=== PATIENT | female | born 1975 | race Hispanic/Latino ===

== ENCOUNTER 2018-08-02 12:05 | Observation (INO) | payer MEDICAID, OTHER ==
[2018-08-02 12:42] LABS: Bilirubin,Urine NEG (Negative); Blood,Urine MOD (Negative); Color,Urine Yellow (Yellow); Mucus,Urine FEW /HPF; Protein,Urine <15 mg/dL mg/dL (Negative); Urobilinogen,Urine < 2.0 mg/dL (<2.0); WBC,Urine < 1.0 /HPF (0.0-6.0)
[2018-08-02 12:43] LABS: HCG Qualitative,Urine Negative (Negative)
[2018-08-02] MEDS ORDERED: NACL 0.9% 500 ML 500 ML IV ONE (13:18)
[2018-08-02] MEDS ORDERED: CARAFATE PO ONE (13:18)
[2018-08-02] MEDS ORDERED: PEPCID IV ONE (13:18)
--- NOTE | 2018-08-02 13:19 | Emergency Department Report ---
ED General Adult HPI - General Chief complaint: Dizziness Stated complaint: DIZZINESS/ABD PAIN/LIGHT HEADED Time Seen by Provider: 08/02/18 13:00 Source: patient, RN notes reviewed Mode of arrival: Ambulatory - History of Present Illness Initial comments: This is a 43-year-old female who was not known to this provider previously. The patient currently does not have a primary care doctor, she also denies chronic disease. She reports that she does not take any long-term prescription medications. Patient presents to the ER. She reports that last Thursday, she began to exper ience diffuse crampy lower abdominal pain, nausea, dizziness, and "felt bad." She describes a sensation of dizziness as a "hot" feeling coming over her head, binocular loss of vision, and the sensation of almost passing out. This is also accompanied by a sensation of unsteady gait. She reports that the next day, she had a subjective fever, found her blood pressure to be "205/100", and presented to another hospital, where she was found to have hypokalemia, high white blood cell count, and was presumptively diagnosed with a "virus." She further reports that she had a noncontrast CT scan of the brain which was "negative", but a CT scan of the abdomen and pelvis was recommended, which she declined. Patient reports that for the past week or so, she's been having intermittent dizziness, nonspecific visual disturbance, sensation of abdominal pain, nausea, weakness, and subjective unsteady gait. The symptoms are intermittent, worse with walking, decreased with rest, and do not radiate anywhere. She denies irritative/obstructive urinary symptoms. She denies DVT, pulmonary embolus risk factors. -: Gradual, days(s) Location: abdomen Radiation: non-radiation Consistency: intermittent Improves with: other Worsens with: other Associated Symptoms: other - Related Data Home Medications Medication Instructions Recorded Confirmed Last Taken Meclizine [Antivert] 25 mg PO TID PRN 08/02/18 08/02/18 Unknown Multivitamin [One Daily 1 each PO DAILY 08/02/18 08/02/18 08/02/18 Multivitamin] Potassium 99 mg PO DAILY 08/02/18 08/02/18 08/02/18 Justin's Wort 300 mg PO DAILY 08/02/18 08/02/18 08/02/18 predniSONE [Deltasone] 10 mg PO BID 08/02/18 08/02/18 08/01/18 Allergies Allergy/AdvReac Type Severity Reaction Status Date / Time aspirin Allergy Vomiting Verified 05/02/13 05:34 codeine Allergy Unknown Verified 05/02/13 05:34 tramadol HCl [From Ultram] Allergy Rash Verified 05/02/13 05:34 iv dye Allergy Anaphylaxis Uncoded 08/02/18 14:31 ED Review of Systems ROS: Stated complaint: DIZZINESS/ABD PAIN/LIGHT HEADED Other details as noted in HPI Constitutional: fever, malaise Eyes: vision change. denies: eye pain, eye discharge ENT: denies: throat pain, epistaxis Respiratory: denies: cough Cardiovascular: dyspnea on exertion, syncope (near syncope, lightheadedness, dizziness) Gastrointestinal: abdominal pain, nausea Genitourinary: denies: dysuria Musculoskeletal: arthralgia, myalgia Skin: denies: lesions Neurological: weakness, abnormal gait Psychiatric: anxiety ED Past Medical Hx - Past Medical History Hx Diabetes: Yes (gestational) Additional medical history: hypoglycemia - Surgical History Additional Surgical History: t&a - Social History Smoking Status: Never Smoker Substance Use Type: None - Medications Home Medications: Home Medications Medication Instructions Recorded Confirmed Last Taken Type Meclizine [Antivert] 25 mg PO TID PRN 08/02/18 08/02/18 Unknown History Multivitamin [One Daily 1 each PO DAILY 08/02/18 08/02/18 08/02/18 History Multivitamin] Potassium 99 mg PO DAILY 08/02/18 08/02/18 08/02/[address] [facility]S's Wort 300 mg PO DAILY 08/02/18 08/02/18 08/02/18 History predniSONE [Deltasone] 10 mg PO BID 08/02/18 08/02/18 08/01/18 History ED Physical Exam - General Limitations: Physical Limitation General appearance: alert, anxious - Head Head exam: Present: atraumatic, normocephalic - Eye Eye exam: Present: normal appearance, PERRL, EOMI, other (visual acuity intact to finger counting, color perception, reading at a close distance). Absent: nystagmus - ENT ENT exam: Present: normal exam, normal orophraynx, mucous membranes moist, normal external ear exam - Neck Neck exam: Present: normal inspection, full ROM. Absent: tenderness, meningi smus - Respiratory Respiratory exam: Present: normal lung sounds bilaterally. Absent: respiratory distress - Cardiovascular Cardiovascular Exam: Present: regular rate, normal rhythm, normal heart sounds. Absent: bradycardia, tachycardia, irregular rhythm, systolic murmur, diastolic murmur, rubs, gallop - GI/Abdominal GI/Abdominal exam: Present: soft, tenderness. Absent: distended, guarding, rebound, rigid, pulsatile mass - Extremities Exam Extremities exam: Present: normal inspection, full ROM, other (Extraocular movements intact. Tongue midline. No facial droop. Facial sensation intact to light touch in the V1, V2, V3 distribution bilaterally. 5 and 5 strength in 4 extremities.. Sensation is intact to light touch in 4 extremities.2+ pulses noted in the bilateral upper, lower extremities. Compartments soft. No long bony tenderness. The pelvis is stable.). Absent: pedal edema, joint swelling, calf tenderness - Back Exam Back exam: Present: normal inspection, full ROM. Absent: tenderness, CVA tenderness (R), paraspinal tenderness, vertebral tenderness - Neurological Exam Neurological exam: Present: alert, oriented X3, abnormal gait (there is no pass pointing. There is normal irdu-ox-cfvt. There is negative pronator drift. There is a normal gait. There is a normal tandem gait. Patient has a positive/abnormal Romberg sign.), other (Extraocular movements intact. Tongue midline. No facial droop. Facial sensation intact to light touch in the V1, V2, V3 distribution bilaterally. 5 and 5 strength in 4 extremities.. Sensation is intact to light touch in 4 extremities.). Absent: motor sensory deficit - Psychiatric Psychiatric exam: Present: anxious - Skin Skin exam: Present: warm, dry, intact, normal color. Absent: rash ED Course Vital Signs 08/02/18 12:09 Temperature 97.3 F L Pulse Rate 78 Respiratory 18 Rate Blood Pressure 159/82 O2 Sat by Pulse 99 Oximetry - Reevaluation(s) Reevaluation #1: 08/02/18 14:18 Differential diagnosis, including but not limited to: Intra-abdominal infection, pneumonia, urinary tract infection, orthostasis, vagal event, structural cardiac disease, thyroid derangement, subacute stroke, multiple sclerosis Assessment and plan: 43-year-old female with abdominal tenderness, leukocytosis, generalized weakness, malaise, fatigue, nonfocal neurologic examination, walks with a steady gait, however has abnormal and positive Romberg examination. Noncontrast CT scan of brain is pending. CT scan of the abdomen and pelvis is pending. Not a TPA candidate given that symptoms present for one week. Has NIH score of 0. Does not require emergent endovascular imaging his symptoms present for a week. We'll treat supportively. We will reassess after her initial blood appointment have resulted. No pulmonary and was or DVT risk factors. Low risk by well's criteria. perc negative Reevaluation #2: 08/02/18 15:08 Patient reported anaphylaxis to IV contrast. non Contrast study has been ordered. Reevaluation #3: 08/02/18 15:37 CT scan of the brain is negative. X-ray of the chest is negative. CT scan of the abdomen pelvis is negative. Plavix ordered given a history of aspirin allergy. Hospital service paged to arrange admission. Reevaluation #4: 08/02/18 15:53 Dr Medley to admit ED Medical Decision Making - Lab Data Result diagrams: 08/02/18 13:20 08/02/18 13:20 Vital Signs 08/02/18 12:09 Temperature 97.3 F L Pulse Rate 78 Respiratory 18 Rate Blood Pressure 159/82 O2 Sat by Pulse 99 Oximetry Lab Results 08/02/18 08/02/18 08/02/18 Range/Units 13:20 13:20 13:38 WBC 18.2 H (4.5-11.0) K/mm3 RBC 4.47 (3.65-5.03) M/mm3 Hgb 13.0 (10.1-14.3) gm/dl Hct 38.9 (30.3-42.9) % MCV 87 (79-97) fl MCH 29 (28-32) pg MCHC 33 (30-34) % RDW 14.0 (13.2-15.2) % Plt Count 340 (140-440) K/mm3 PT 13.0 (12.2-14.9) Sec. INR 0.94 (0.87-1.13) APTT 29.1 (24.2-36.6) Sec. Sodium 140 (137-145) mmol/L Potassium 4.2 (3.6-5.0) mmol/L Chloride 102.4 (98-107) mmol/L Carbon Dioxide 25 (22-30) mmol/L Anion Gap 17 mmol/L BUN 10 (7-17) mg/dL Creatinine 0.6 L (0.7-1.2) mg/dL Estimated GFR > 60 ml/min BUN/Creatinine Ratio 17 % Glucose 84 (65-100) mg/dL Calcium 9.3 (8.4-10.2) mg/dL Magnesium 1.90 (1.7-2.3) mg/dL Troponin T < 0.010 (0.00-0.029) ng/mL Urine Color (Yellow) Urine Turbidity (Clear) Urine pH (5.0-7.0) Ur Specific Star[place] (1.003-1.030) Urine Protein (Negative) mg/dL Urine Glucose (UA) (Negative) mg/dL Urine Ketones (Negative) mg/dL Urine Blood (Negative) Urine Nitrite (Negative) Urine Bilirubin (Negative) Urine Urobilinogen (<2.0) mg/dL Ur Leukocyte Esterase (Negative) Urine WBC (Auto) (0.0-6.0) /HPF Urine RBC (Auto) (0.0-6.0) /HPF Urine Mucus /HPF Urine HCG, Qual (Negative) 08/02/18 Range/Units Unknown WBC (4.5-11.0) K/mm3 RBC (3.65-5.03) M/mm3 Hgb (10.1-14.3) gm/dl Hct (30.3-42.9) % MCV (79-97) fl MCH (28-32) pg MCHC (30-34) % RDW (13.2-15.2) % Plt Count (140-440) K/mm3 PT (12.2-14.9) Sec. INR (0.87-1.13) APTT (24.2-36.6) Sec. Sodium (137-145) mmol/L Potassium (3.6-5.0) mmol/L Chloride (98-107) mmol/L Carbon Dioxide (22-30) mmol/L Anion Gap mmol/L BUN (7-17) mg/dL Creatinine (0.7-1.2) mg/dL Estimated GFR ml/min BUN/Creatinine Ratio % Glucose (65-100) mg/dL Calcium (8.4-10.2) mg/dL Magnesium (1.7-2.3) mg/dL Troponin T (0.00-0.029) ng/mL Urine Color Yellow (Yellow) Urine Turbidity Clear (Clear) Urine pH 6.0 (5.0-7.0) Ur Specific Starlight 1.011 (1.003-1.030) Urine Protein <15 mg/dl (Negative) mg/dL Urine Glucose (UA) Neg (Negative) mg/dL Urine Ketones Neg (Negative) mg/dL Urine Blood Mod (Negative) Urine Nitrite Neg (Negative) Urine Bilirubin Neg (Negative) Urine Urobilinogen < 2.0 (<2.0) mg/dL Ur Leukocyte Esterase Neg (Negative) Urine WBC (Auto) < 1.0 (0.0-6.0) /HPF Urine RBC (Auto) 10.0 (0.0-6.0) /HPF Urine Mucus Few /HPF Urine HCG, Qual Negative (Negative) - EKG Data -: EKG Interpreted by Id EKG shows normal: sinus rhythm Rate: normal - EKG Data When compared to previous EKG there are: previous EKG unavailable 08/02/18 14:20 Sinus, 82 bpm, normal axis, intervals, poor R-wave progression, abnormal EKG, not consistent with ST elevation myocardial infarction. There is no prior for comparison. - Radiology Data Radiology results: pending, report reviewed, image reviewed Critical care attestation.: If time is entered above; I have spent that time in minutes in the direct care of this critically ill patient, excluding procedure time. ED Disposition Clinical Impression: Visual disturbance, History of unsteady gait, Near syncope Disposition: OP ADMIT IP TO THIS HOSP Is pt being admited?: Yes Does the pt Need Aspirin: No Condition: Good Referrals: PRIMARY CARE,MD [Primary Care Provider] - 3-5 Days
[2018-08-02 13:36] LABS: Hematocrit 38.9 % (30.3-42.9); Mean Corpuscular HGB Conc 33 % (30-34); Mean Corpuscular Volume 87 fl (79-97); Platelet Count 340 K/mm3 (140-440); Red Blood Count 4.47 M/mm3 (3.65-5.03)
[2018-08-02 13:55] LABS: INR 0.94 (0.87-1.13)
[2018-08-02 13:56] LABS: Partial Thromboplastin Time 29.1 Sec. (24.2-36.6)
[2018-08-02 13:57] LABS: BUN/Creatinine Ratio 17; Blood Urea Nitrogen 10 mg/dL (7-17); Calcium 9.3 mg/dL (8.4-10.2); Hemolysis Index 2
--- NOTE | 2018-08-02 15:16 | XRay Report ---
ROUTINE CHEST, TWO VIEWS: HISTORY: Fever, malaise, weakness, and near syncope. The trachea, heart, mediastinal contour, lung lees and bony thorax are unremarkable. IMPRESSION: Unremarkable chest x-ray.
--- NOTE | 2018-08-02 15:17 | Cat Scan Report ---
CT HEAD WITHOUT CONTRAST: HISTORY: Unsteady gait. TECHNIQUE: Sequential 2.5mm CT images. COMPARISON: none. FINDINGS: Cerebral Parenchyma: Within normal limits. Cerebellum: Within normal limits. Brainstem: Within normal limits. Ventricles: Normal. Sella: Normal. Extra-axial spaces: Normal. Basal Cisterns: Normal. Intracranial Hemorrhage: None. Midline Shift: None. Calvarium: Normal. Sinuses: Normal. Mastoid Air Cells: Normal. Visualized Orbits: Normal. IMPRESSION: Cranial CT scan within normal limits.
--- NOTE | 2018-08-02 15:19 | Cat Scan Report ---
CT ABDOMEN PELVIS WITHOUT CONTRAST: HISTORY: abdominal pain. COMPARISON: none. TECHNIQUE: Helical CT in 1.25mm intervals without IV contrast. Sagittal and coronal reconstructions. FINDINGS: Lung bases: Normal. Liver: Normal. Biliary system: Normal. Pancreas: Normal. Spleen: Normal. Kidneys/ureters/bladder: Normal. Adrenal glands: Normal. Aorta: Normal. Intestines: Normal. Appendix: Normal. Pelvic viscera: Normal. Ascites: None. Adenopathy: None. Musculoskeletal: Normal. IMPRESSION: Unremarkable CT scan of the abdomen and pelvis without contrast.
[2018-08-02] MEDS ORDERED: PLAVIX PO ONE (15:37)
--- NOTE | 2018-08-02 16:20 | History and Physical Report ---
History of Present Illness Date of examination: 08/02/18 Date of admission: 08/02/18 Chief complaint: Feeling weak, nauseous, generalized weakness and dizzy while standing for 1 week History of present illness: 43-year-old female with no significant past medical history comes in for nausea and dizziness and feeling weak for last 1 week. Feels unsteady while walking secondary to weakness. Patient was evaluated in [facility] and was told that she had a viral syndrome. Her blood pressure was apparently high but normally she runs a normal blood pressure on a regular basis. Low-grade fever present. Off and on. Did not vomit. No diarrhea. No shortness of breath. Feels weak and dizzy while standing and walking. Says she has some blurred vision intermittently. No dysarthria or dysphagia. No dysuria. No recent travel. Past Medical History Hx Diabetes: Yes (gestational) Additional medical history: hypoglycemia - Surgical History Additional Surgical History: t&a - Social History Smoking Status: Never Smoker Substance Use Type: None Family history Htn - Medications Home Medications: Home Medications Medication Instructions Recorded Confirmed Last Taken Type Meclizine [Antivert] 25 mg PO TID PRN 08/02/18 08/02/18 Unknown History Multivitamin [One Daily 1 each PO DAILY 08/02/18 08/02/18 08/02/18 History Multivitamin] Potassium 99 mg PO DAILY 08/02/18 08/02/18 08/02/18 History Justin's Wort 300 mg PO DAILY 08/02/18 08/02/18 08/02/18 History predniSONE [Deltasone] 10 mg PO BID 08/02/18 08/02/18 08/01/18 History Review of systems ROS: Stated complaint: DIZZINESS/ABD PAIN/LIGHT HEADED Other details as noted in HPI Constitutional: fever, malaise Eyes: vision change. denies: eye pain, eye discharge ENT: denies: throat pain, epistaxis Respiratory: denies: cough Cardiovascular: dyspnea on exertion, syncope (near syncope, lightheadedness, dizziness) Gastrointestinal: abdominal pain, nausea Genitourinary: denies: dysuria Musculoskeletal: arthralgia, myalgia Skin: denies: lesions Neurological: weakness, abnormal gait Psychiatric: anxiety I: 1 Medications and Allergies Allergies Allergy/AdvReac Type Severity Reaction Status Date / Time aspirin Allergy Vomiting Verified 05/02/13 05:34 codeine Allergy Unknown Verified 05/02/13 05:34 tramadol HCl [From Ultram] Allergy Rash Verified 05/02/13 05:34 iv dye Allergy Anaphylaxis Uncoded 08/02/18 14:31 Home Medications Medication Instructions Recorded Confirmed Last Taken Type Meclizine [Antivert] 25 mg PO TID PRN 08/02/18 08/02/18 Unknown History Multivitamin [One Daily 1 each PO DAILY 08/02/18 08/02/18 08/02/18 History Multivitamin] Potassium 99 mg PO DAILY 08/02/18 08/02/18 08/02/18 History Justin's Wort 300 mg PO DAILY 08/02/18 08/02/18 08/02/18 History predniSONE [Deltasone] 10 mg PO BID 08/02/18 08/02/18 08/01/18 History Exam - Constitutional Vitals: Temp Pulse Resp BP Pulse Ox 97.3 F L 78 18 159/82 99 08/02/18 12:09 08/02/18 12:09 08/02/18 12:09 08/02/18 12:09 08/02/18 12:09 General appearance: Present: no acute distress, well-nourished - EENT Eyes: Present: PERRL ENT: hearing intact, clear oral mucosa - Neck Neck: Present: supple, normal ROM - Respiratory Respiratory effort: normal Respiratory: bilateral: CTA - Cardiovascular Heart rate: 86 Rhythm: regular Heart Sounds: Present: S1 & S2. Absent: rub, click - Extremities Extremities: no ischemia, pulses intact, pulses symmetrical, No edema Peripheral Pulses: within normal limits - Abdominal General gastrointestinal: Present: soft, non-tender, non-distended, normal bowel sounds Female genitourinary: Present: normal - Rectal Rectal Exam: deferred - Integumentary Integumentary: Present: clear, warm, dry - Musculoskeletal Musculoskeletal: gait normal, strength equal bilaterally - Psychiatric Psychiatric: appropriate mood/affect, intact judgment & insight - Neurologic Neurologic: CNII-XII intact, moves all extremities, other (able to walk normally) - Allied Health Allied health notes reviewed: nursing, case management Results - Labs CBC & Chem 7: 08/02/18 13:20 08/02/18 13:20 Labs: Laboratory Last Values WBC 18.2 K/mm3 (4.5-11.0) H 08/02/18 13:20 RBC 4.47 M/mm3 (3.65-5.03) 08/02/18 13:20 Hgb 13.0 gm/dl (10.1-14.3) 08/02/18 13:20 Hct 38.9 % (30.3-42.9) 08/02/18 13:20 MCV 87 fl (79-97) 08/02/18 13:20 MCH 29 pg (28-32) 08/02/18 13:20 MCHC 33 % (30-34) 08/02/18 13:20 RDW 14.0 % (13.2-15.2) 08/02/18 13:20 Plt Count 340 K/mm3 (140-440) 08/02/18 13:20 PT 13.0 Sec. (12.2-14.9) 08/02/18 13:38 INR 0.94 (0.87-1.13) 08/02/18 13:38 APTT 29.1 Sec. (24.2-36.6) 08/02/18 13:38 Sodium 140 mmol/L (137-145) 08/02/18 13:20 Potassium 4.2 mmol/L (3.6-5.0) 08/02/18 13:20 Chloride 102.4 mmol/L (98-107) 08/02/18 13:20 Carbon Dioxide 25 mmol/L (22-30) 08/02/18 13:20 Anion Gap 17 mmol/L 08/02/18 13:20 BUN 10 mg/dL (7-17) 08/02/18 13:20 Creatinine 0.6 mg/dL (0.7-1.2) L 08/02/18 13:20 Estimated GFR > 60 ml/min 08/02/18 13:20 BUN/Creatinine Ratio 17 % 08/02/18 13:20 Glucose 84 mg/dL (65-100) 08/02/18 13:20 Calcium 9.3 mg/dL (8.4-10.2) 08/02/18 13:20 Magnesium 1.90 mg/dL (1.7-2.3) 08/02/18 13:20 Total Creatine Kinase 29 units/L (30-135) L 08/02/18 13:20 Troponin T < 0.010 ng/mL (0.00-0.029) 08/02/18 13:20 TSH 1.030 mlU/mL (0.270-4.200) 08/02/18 15:15 Urine Color Yellow (Yellow) 08/02/18 Unknown Urine Turbidity Clear (Clear) 08/02/18 Unknown Urine pH 6.0 (5.0-7.0) 08/02/18 Unknown Ur Specific [place] 1.011 (1.003-1.030) 08/02/18 Unknown Urine Protein <15 mg/dl mg/dL (Negative) 08/02/18 Unknown Urine Glucose (UA) Neg mg/dL (Negative) 08/02/18 Unknown Urine Ketones Neg mg/dL (Negative) 08/02/18 Unknown Urine Blood Mod (Negative) 08/02/18 Unknown Urine Nitrite Neg (Negative) 08/02/18 Unknown Urine Bilirubin Neg (Negative) 08/02/18 Unknown Urine Urobilinogen < 2.0 mg/dL (<2.0) 08/02/18 Unknown Ur Leukocyte Esterase Neg (Negative) 08/02/18 Unknown Urine WBC (Auto) < 1.0 /HPF (0.0-6.0) 08/02/18 Unknown Urine RBC (Auto) 10.0 /HPF (0.0-6.0) 08/02/18 Unknown Urine Mucus Few /HPF 08/02/18 Unknown Urine HCG, Qual Negative (Negative) 08/02/18 Unknown Short CBC 08/02/18 Range/Units 13:20 WBC 18.2 H (4.5-11.0) K/mm3 Hgb 13.0 (10.1-14.3) gm/dl Hct 38.9 (30.3-42.9) % Plt Count 340 (140-440) K/mm3 BMP 08/02/18 13:20 Sodium 140 Potassium 4.2 Chloride 102.4 Carbon Dioxide 25 BUN 10 Creatinine 0.6 L Glucose 84 Calcium 9.3 Cardiac Enzymes 08/02/18 Range/Units 13:20 Total Creatine Kinase 29 L (30-135) units/L Troponin T < 0.010 (0.00-0.029) ng/mL Urine 08/02/18 Range/Units Unknown Urine Color Yellow (Yellow) Urine pH 6.0 (5.0-7.0) Ur Specific [place] 1.011 (1.003-1.030) Urine Protein <15 mg/dl (Negative) mg/dL Urine Glucose (UA) Neg (Negative) mg/dL Short CBC 08/02/18 Range/Units 13:20 WBC 18.2 H (4.5-11.0) K/mm3 Hgb 13.0 (10.1-14.3) gm/dl Hct 38.9 (30.3-42.9) % Plt Count 340 (140-440) K/mm3 BMP 08/02/18 13:20 Sodium 140 Potassium 4.2 Chloride 102.4 Carbon Dioxide 25 BUN 10 Creatinine 0.6 L Glucose 84 Calcium 9.3 Cardiac Enzymes 08/02/18 Range/Units 13:20 Total Creatine Kinase 29 L (30-135) units/L Troponin T < 0.010 (0.00-0.029) ng/mL Urine 08/02/18 Range/Units Unknown Urine Color Yellow (Yellow) Urine pH 6.0 (5.0-7.0) Ur Specific [place] 1.011 (1.003-1.030) Urine Protein <15 mg/dl (Negative) mg/dL Urine Glucose (UA) Neg (Negative) mg/dL - Imaging and Cardiology EKG: report reviewed (normal sinus rhythm, heart rate of 82/m, no acute ST-T wave changes, EKG interpreted by me) Assessment and Plan Advance Directives: Yes (full Code) VTE prophylaxis?: Chemical Plan of care discussed with patient/family: Yes - Patient Problems (1) Ataxia Current Visit: Yes Status: Acute Plan to address problem: No cerebellar signs Dizziness probably causing unsteady gait IV fluids Orthostatics MRI was not ordered I'm not in favor of any neurological causes of dizziness Dizziness may be secondary to orthostatic hypotension (2) Leukocytosis Current Visit: Yes Status: Acute Qualifiers: Leukocytosis type: unspecified Qualified Code(s): D72.829 - Elevated white blood cell count, unspecified Plan to address problem: Probably Demargination No signs of infection No antibiotics ordered Tamiflu ordered (3) Acute dehydration Current Visit: Yes Status: Acute Plan to address problem: IV fluids for now (4) DVT prophylaxis Current Visit: Yes Status: Acute Plan to address problem: Patient on Lovenox and GI prophylaxis
[2018-08-02] MEDS ORDERED: DILAUDID IV PRN (16:43)
[2018-08-02] MEDS ORDERED: SODIUM CHLORIDE FLUSH SYRINGE 10 ML IV PRN (16:43)
[2018-08-02] MEDS ORDERED: ZOFRAN IV PRN (16:43)
[2018-08-02] MEDS: NACL 0.9% 1000 ML 1,000 ML IV SCH (17:45)
[2018-08-02] MEDS: TAMIFLU PO SCH (22:35)
[2018-08-02] MEDS: TYLENOL PO PRN (22:35)
[2018-08-02] MEDS: SODIUM CHLORIDE FLUSH SYRINGE 10 ML IV SCH (22:36)
[2018-08-03 05:13] LABS: Hemoglobin 11.9 gm/dl (10.1-14.3); Mean Corpuscular HGB Conc 33 % (30-34); Mean Corpuscular Volume 87 fl (79-97); Platelet Count 260 K/mm3 (140-440); Red Blood Count 4.12 M/mm3 (3.65-5.03)
[2018-08-03 05:52] LABS: Alanine Aminotransferase 8 units/L (7-56); BUN/Creatinine Ratio 14; Blood Urea Nitrogen 7 mg/dL (7-17); Hemolysis Index 40
[2018-08-03 07:05] LABS: Basophils % (Manual) 0 % (0.0-1.8); Eosinophils % (Manual) 0 % (0.0-4.3); Platelet Estimate Appe; RBC Morphology Normal; Total Cells Counted 100
[2018-08-03] MEDS: NACL 0.9% 1000 ML 1,000 ML IV SCH ×2 (07:08→16:53)
[2018-08-03] MEDS: TAMIFLU PO SCH ×2 (09:42→21:31)
[2018-08-03] MEDS: SODIUM CHLORIDE FLUSH SYRINGE 10 ML IV SCH ×2 (09:43→21:32)
--- NOTE | 2018-08-03 10:47 | Progress Note ---
Assessment and Plan Assessment and plan: 43-year-old female with no significant past medical history comes in for nausea and dizziness and feeling weak for last 1 week. Feels unsteady while walking secondary to weakness. Patient was evaluated in [facility] and was told that she had a viral syndrome. Her blood pressure was apparently high but normally she runs a normal blood pressure on a regular basis. Low-grade fever present. Off and on. Did not vomit. No diarrhea. No shortness of breath. Feels weak and dizzy while standing and walking. Says she has some blurred vision intermittently. No dysarthria or dysphagia. No dysuria. No recent travel. Peritoneal irritation with intractable diet aggravated abdominal pain Near syncope Hypokalemia Nausea with no Vomiting SIRS with non infectious etiology Plan Supportive care Consult GI Doubt the Influenza considering duration. symptoms started since June add n ow worsened. will stop TamiflU Check Lipase MRI brain PPI DVT/GI PROPHY Plan discussed with the patient. History Interval history: Patient is seen today for: Dizziness with intractable abdominal pain Seen and examined at bedside; 24hour events reviewed; nursing staff ; no adverse overnight events reported to me; Denies any chest pain, vomiting, diarrhea No fever noted blood pressure controlled Patient still reports near syncope with movement. Denies any tinnitus. Still reports abdominal pain with food intake. Hospitalist Physical - Physical exam Narrative exam: VITAL SIGNS: Reviewed. GENERAL: The patient appeared well nourished and normally developed. Vital signs as documented. HEAD: No signs of head trauma. EYES: Pupils are equal. Extraocular motions intact. No nystagmus EARS: Hearing grossly intact. MOUTH: Oropharynx is normal. NECK: No adenopathy, no JVD. CHEST: Chest with clear breath sounds bilaterally. No wheezes, rales, or rhonchi. CARDIAC: Regular rate and rhythm. S1 and S2, without murmurs, gallops, or rubs. VASCULAR: No Edema. Peripheral pulses normal and equal in all extremities. ABDOMEN: Soft, tender to palpation in the epigastric region. No sign of distention. No rebound or guarding, and no masses palpated. Bowel Sounds normal. MUSCULOSKELETAL: Good range of motion of all major joints. Extremities without clubbing, cyanosis or edema. NEUROLOGIC EXAM: Alert and oriented x 3. No focal sensory or strength deficits. Speech normal. Follows commands. PSYCHIATRIC: Mood normal. SKIN: No rash or lesions. - Constitutional Vitals: Temp Pulse Resp BP Pulse Ox 98.1 F 68 20 112/53 96 08/02/18 22:18 08/02/18 22:18 08/02/18 22:18 08/02/18 22:18 08/02/18 22:18 General appearance: Present: no acute distress, well-nourished Results - Labs CBC & Chem 7: 08/03/18 04:24 08/03/18 04:24 Labs: Laboratory Last Values WBC 12.5 K/mm3 (4.5-11.0) H 08/03/18 04:24 RBC 4.12 M/mm3 (3.65-5.03) 08/03/18 04:24 Hgb 11.9 gm/dl (10.1-14.3) 08/03/18 04:24 Hct 36.0 % (30.3-42.9) 08/03/18 04:24 MCV 87 fl (79-97) 08/03/18 04:24 MCH 29 pg (28-32) 08/03/18 04:24 MCHC 33 % (30-34) 08/03/18 04:24 RDW 14.0 % (13.2-15.2) 08/03/18 04:24 Plt Count 260 K/mm3 (140-440) 08/03/18 04:24 Lymph # Fashion Photographer 08/03/18 04:24 Add Manual Diff Complete 08/03/18 04:24 Total Counted 100 08/03/18 04:24 Seg Neuts % (Manual) 63.0 % (40.0-70.0) 08/03/18 04:24 Band Neutrophils % 0 % 08/03/18 04:24 Lymphocytes % (Manual) 29.0 % (13.4-35.0) 08/03/18 04:24 Reactive Lymphs % (Man) 0 % 08/03/18 04:24 Monocytes % (Manual) 8.0 % (0.0-7.3) H 08/03/18 04:24 Eosinophils % (Manual) 0 % (0.0-4.3) 08/03/18 04:24 Basophils % (Manual) 0 % (0.0-1.8) 08/03/18 04:24 Metamyelocytes % 0 % 08/03/18 04:24 Myelocytes % 0 % 08/03/18 04:24 Promyelocytes % 0 % 08/03/18 04:24 Blast Cells % 0 % 08/03/18 04:24 Nucleated RBC % Not Reportable 08/03/18 04:24 Seg Neutrophils # Man 7.9 K/mm3 (1.8-7.7) H 08/03/18 04:24 Band Neutrophils # 0.0 K/mm3 08/03/18 04:24 Lymphocytes # (Manual) 3.6 K/mm3 (1.2-5.4) 08/03/18 04:24 Abs React Lymphs (Man) 0.0 K/mm3 08/03/18 04:24 Monocytes # (Manual) 1.0 K/mm3 (0.0-0.8) H 08/03/18 04:24 Eosinophils # (Manual) 0.0 K/mm3 (0.0-0.4) 08/03/18 04:24 Basophils # (Manual) 0.0 K/mm3 (0.0-0.1) 08/03/18 04:24 Metamyelocytes # 0.0 K/mm3 08/03/18 04:24 Myelocytes # 0.0 K/mm3 08/03/18 04:24 Promyelocytes # 0.0 K/mm3 08/03/18 04:24 Blast Cells # 0.0 K/mm3 08/03/18 04:24 WBC Morphology Not Reportable 08/03/18 04:24 Hypersegmented Neuts Not Reportable 08/03/18 04:24 Hyposegmented Neuts Not Reportable 08/03/18 04:24 Hypogranular Neuts Not Reportable 08/03/18 04:24 Smudge Cells Not Reportable 08/03/18 04:24 Toxic Granulation Not Reportable 08/03/18 04:24 Toxic Vacuolation Not Reportable 08/03/18 04:24 Dohle Bodies Not Reportable 08/03/18 04:24 Pelger-Huet Anomaly Not Reportable 08/03/18 04:24 Mode Rods Not Reportable 08/03/18 04:24 Platelet Estimate Appe 08/03/18 04:24 Clumped Platelets Not Reportable 08/03/18 04:24 Plt Clumps, EDTA Not Reportable 08/03/18 04:24 Large Platelets Not Reportable 08/03/18 04:24 Giant Platelets Not Reportable 08/03/18 04:24 Platelet Satelliting Not Reportable 08/03/18 04:24 Plt Morphology Comment Not Reportable 08/03/18 04:24 RBC Morphology Normal 08/03/18 04:24 Dimorphic RBCs Not Reportable 08/03/18 04:24 Polychromasia Not Reportable 08/03/18 04:24 Hypochromasia Not Reportable 08/03/18 04:24 Poikilocytosis Not Reportable 08/03/18 04:24 Anisocytosis Not Reportable 08/03/18 04:24 Microcytosis Not Reportable 08/03/18 04:24 Macrocytosis Not Reportable 08/03/18 04:24 Spherocytes Not Reportable 08/03/18 04:24 Pappenheimer Bodies Not Reportable 08/03/18 04:24 Sickle Cells Not Reportable 08/03/18 04:24 Target Cells Not Reportable 08/03/18 04:24 Tear Drop Cells Not Reportable 08/03/18 04:24 Ovalocytes Not Reportable 08/03/18 04:24 Helmet Cells Not Reportable 08/03/18 04:24 [place] Bodies Not Reportable 08/03/18 04:24 [place] Rings Not Reportable 08/03/18 04:24 [place] Cells Not Reportable 08/03/18 04:24 Bite Cells Not Reportable 08/03/18 04:24 Crenated Cell Not Reportable 08/03/18 04:24 Elliptocytes Not Reportable 08/03/18 04:24 Acanthocytes (Spur) Not Reportable 08/03/18 04:24 Rouleaux Not Reportable 08/03/18 04:24 Hemoglobin C Crystals Not Reportable 08/03/18 04:24 Schistocytes Not Reportable 08/03/18 04:24 Malaria parasites Not Reportable 08/03/18 04:24 Jaren Bodies Not Reportable 08/03/18 04:24 Hem Pathologist Commnt No 08/03/18 04:24 PT 13.0 Sec. (12.2-14.9) 08/02/18 13:38 INR 0.94 (0.87-1.13) 08/02/18 13:38 APTT 29.1 Sec. (24.2-36.6) 08/02/18 13:38 Sodium 140 mmol/L (137-145) 08/03/18 04:24 Potassium 3.4 mmol/L (3.6-5.0) L 08/03/18 04:24 Chloride 104.4 mmol/L (98-107) 08/03/18 04:24 Carbon Dioxide 22 mmol/L (22-30) 08/03/18 04:24 Anion Gap 17 mmol/L 08/03/18 04:24 BUN 7 mg/dL (7-17) 08/03/18 04:24 Creatinine 0.5 mg/dL (0.7-1.2) L 08/03/18 04:24 Estimated GFR > 60 ml/min 08/03/18 04:24 BUN/Creatinine Ratio 14 % 08/03/18 04:24 Glucose 89 mg/dL (65-100) 08/03/18 04:24 Hemoglobin A1c 5.5 % (4-6) 08/02/18 16:44 Calcium 8.0 mg/dL (8.4-10.2) L 08/03/18 04:24 Magnesium 1.90 mg/dL (1.7-2.3) 08/02/18 13:20 Total Bilirubin 0.20 mg/dL (0.1-1.2) 08/03/18 04:24 AST 10 units/L (5-40) 08/03/18 04:24 ALT 8 units/L (7-56) 08/03/18 04:24 Alkaline Phosphatase 39 units/L (35-129) 08/03/18 04:24 Total Creatine Kinase 29 units/L (30-135) L 08/02/18 13:20 Troponin T < 0.010 ng/mL (0.00-0.029) 08/02/18 13:20 Total Protein 6.1 g/dL (6.3-8.2) L 08/03/18 04:24 Albumin 3.0 g/dL (3.9-5) L 08/03/18 04:24 Albumin/Globulin Ratio 1.0 % 08/03/18 04:24 TSH 1.030 mlU/mL (0.270-4.200) 08/02/18 15:15 Urine Color Yellow (Yellow) 08/02/18 Unknown Urine Turbidity Clear (Clear) 08/02/18 Unknown Urine pH 6.0 (5.0-7.0) 08/02/18 Unknown Ur Specific Gallagher 1.011 (1.003-1.030) 08/02/18 Unknown Urine Protein <15 mg/dl mg/dL (Negative) 08/02/18 Unknown Urine Glucose (UA) Neg mg/dL (Negative) 08/02/18 Unknown Urine Ketones Neg mg/dL (Negative) 08/02/18 Unknown Urine Blood Mod (Negative) 08/02/18 Unknown Urine Nitrite Neg (Negative) 08/02/18 Unknown Urine Bilirubin Neg (Negative) 08/02/18 Unknown Urine Urobilinogen < 2.0 mg/dL (<2.0) 08/02/18 Unknown Ur Leukocyte Esterase Neg (Negative) 08/02/18 Unknown Urine WBC (Auto) < 1.0 /HPF (0.0-6.0) 08/02/18 Unknown Urine RBC (Auto) 10.0 /HPF (0.0-6.0) 08/02/18 Unknown Urine Mucus Few /HPF 08/02/18 Unknown Urine HCG, Qual Negative (Negative) 08/02/18 Unknown - Imaging and Cardiology CT scan - abdomen: image reviewed (no acute pathology)
[2018-08-03] MEDS ORDERED: AFLURIA QUAD 2018-2019 SYRINGE IM ONE (12:00)
--- NOTE | 2018-08-03 14:21 | Gastroenterology Consultation ---
<PILAR HADDAD - Last Filed: 08/03/18 14:42> History of Present Illness - Reason for Consult Consult date: 08/03/18 intractable abdominal pain Requesting physician: SELINA WRAY - History of Present Illness Patient is a 43 y/o female with no significant PMH who presented to ED with c/o nausea, dizziness, weakness with unsteady gait and abdominal pain to which GI has been consulted. CT of head and abdomen unremarkable upon admission. MRI pending. This afternoon patient was sitting up in bed w/o acute distress and family at bedside. She reports having a stomach virus 2 days after Thanks[place] with an acute onset of N/V/D and abd cramping x 24 hrs and again 3 days after Nilda with symptoms improved after 24 but with continued intermittent abdominal pain and nausea since that time. Pain is in upper abdomen (periumbilical/epigastric/RUQ). Symptoms are worse after eating. Admits to a slight drop in wt with current symptoms but no significant wt loss. Denies fever, CP, SOB, vomiting, dysphagia, signs of bleeding, or diarrhea. Has occasional constipation. No NSAID use or hx of PUD. No prior EGD. Past History Past Medical History: diabetes (gestational) Past Surgical History: Other (t&a) Social history: denies: smoking, alcohol abuse Family history: hypertension Medications and Allergies Allergies Allergy/AdvReac Type Severity Reaction Status Date / Time aspirin Allergy Vomiting Verified 05/02/13 05:34 codeine Allergy Unknown Verified 05/02/13 05:34 tramadol HCl [From Ultram] Allergy Rash Verified 05/02/13 05:34 iv dye Allergy Anaphylaxis Uncoded 08/02/18 14:31 Home Medications Medication Instructions Recorded Confirmed Last Taken Type Meclizine [Antivert] 25 mg PO TID PRN 08/02/18 08/02/18 Unknown History Multivitamin [One Daily 1 each PO DAILY 08/02/18 08/02/18 08/02/18 History Multivitamin] Potassium 99 mg PO DAILY 08/02/18 08/02/18 08/02/18 History Justin's Wort 300 mg PO DAILY 08/02/18 08/02/18 08/02/18 History predniSONE [Deltasone] 10 mg PO BID 08/02/18 08/02/18 08/01/18 History Active Meds: Active Medications Acetaminophen (Tylenol) 650 mg PO Q4H PRN PRN Reason: Pain MILD(1-3)/Fever >100.5/TURNER Last Admin: 08/02/18 22:35 Dose: 650 mg Documented by: Hydromorphone HCl (Dilaudid) 0.5 mg IV Q3H PRN PRN Reason: Pain , Severe (7-10) Sodium Chloride (Nacl 0.9% 1000 Ml) 1,000 mls @ 100 mls/hr IV DIRECT [facility] Last Admin: 08/03/18 07:08 Dose: 100 mls/hr Documented by: Ondansetron HCl (Zofran) 4 mg IV Q8H PRN PRN Reason: Nausea And Vomiting Last Admin: 08/03/18 12:11 Dose: 4 mg Documented by: Oseltamivir Phosphate (Tamiflu) 75 mg PO BID [facility] Stop: 08/07/18 10:01 Last Admin: 08/03/18 09:42 Dose: 75 mg Documented by: Sodium Chloride (Sodium Chloride Flush Syringe 10 Ml) 10 ml IV BID [facility] Last Admin: 08/03/18 09:43 Dose: 10 ml Documented by: Sodium Chloride (Sodium Chloride Flush Syringe 10 Ml) 10 ml IV PRN PRN PRN Reason: LINE FLUSH medications reviewed/updated as required Review of Systems - Review of Systems All systems: negative Constitutional: weakness, other (dizziness) Gastrointestinal: abdominal pain, nausea Exam - Constitutional Vital Signs: Temp Pulse Resp BP Pulse Ox 97.9 F 62 20 110/51 96 08/03/18 05:10 08/03/18 05:10 08/03/18 05:10 08/03/18 05:10 08/03/18 05:10 General appearance: no acute distress - EENT Eyes: PERRL, EOM intact - Respiratory Respiratory: bilateral: CTA - Cardiovascular Rhythm: regular Heart Sounds: Present: S1 & S2 - Gastrointestinal General gastrointestinal: Present: soft, tender (epigastric/RUQ), non-distended, normal bowel sounds - Neurologic Neurological: alert and oriented x3 - Labs CBC & Chem 7: 08/03/18 04:24 08/03/18 04:24 Lab Results: Laboratory Results - last 24 hr 08/02/18 08/02/18 08/02/18 13:20 15:15 16:44 WBC RBC Hgb Hct MCV MCH MCHC RDW Plt Count Lymph # Add Manual Diff Total Counted Seg Neuts % (Manual) Band Neutrophils % Lymphocytes % (Manual) Reactive Lymphs % (Man) Monocytes % (Manual) Eosinophils % (Manual) Basophils % (Manual) Metamyelocytes % Myelocytes % Promyelocytes % Blast Cells % Nucleated RBC % Seg Neutrophils # Man Band Neutrophils # Lymphocytes # (Manual) Abs React Lymphs (Man) Monocytes # (Manual) Eosinophils # (Manual) Basophils # (Manual) Metamyelocytes # Myelocytes # Promyelocytes # Blast Cells # WBC Morphology Hypersegmented Neuts Hyposegmented Neuts Hypogranular Neuts Smudge Cells Toxic Granulation Toxic Vacuolation Dohle Bodies Pelger-Huet Anomaly Mode Rods Platelet Estimate Clumped Platelets Plt Clumps, EDTA Large Platelets Giant Platelets Platelet Satelliting Plt Morphology Comment RBC Morphology Dimorphic RBCs Polychromasia Hypochromasia Poikilocytosis Anisocytosis Microcytosis Macrocytosis Spherocytes Pappenheimer Bodies Sickle Cells Target Cells Tear Drop Cells Ovalocytes Helmet Cells [place] Bodies [place] Cells Bite Cells Crenated Cell Elliptocytes Acanthocytes (Spur) Rouleaux Hemoglobin C Crystals Schistocytes Malaria parasites Jaren Bodies Hem Pathologist Commnt Sodium Potassium Chloride Carbon Dioxide Anion Gap BUN Creatinine Estimated GFR BUN/Creatinine Ratio Glucose Hemoglobin A1c 5.5 Calcium Total Bilirubin AST ALT Alkaline Phosphatase Total Creatine Kinase 29 L Total Protein Albumin Albumin/Globulin Ratio TSH 1.030 08/03/18 08/03/18 04:24 04:24 WBC 12.5 H RBC 4.12 Hgb 11.9 Hct 36.0 MCV 87 MCH 29 MCHC 33 RDW 14.0 Plt Count 260 Lymph # Back Tender [employer] Printing Add Manual Diff Complete Total Counted 100 Seg Neuts % (Manual) 63.0 Band Neutrophils % 0 Lymphocytes % (Manual) 29.0 Reactive Lymphs % (Man) 0 Monocytes % (Manual) 8.0 H Eosinophils % (Manual) 0 Basophils % (Manual) 0 Metamyelocytes % 0 Myelocytes % 0 Promyelocytes % 0 Blast Cells % 0 Nucleated RBC % Not Reportable Seg Neutrophils # Man 7.9 H Band Neutrophils # 0.0 Lymphocytes # (Manual) 3.6 Abs React Lymphs (Man) 0.0 Monocytes # (Manual) 1.0 H Eosinophils # (Manual) 0.0 Basophils # (Manual) 0.0 Metamyelocytes # 0.0 Myelocytes # 0.0 Promyelocytes # 0.0 Blast Cells # 0.0 WBC Morphology Not Reportable Hypersegmented Neuts Not Reportable Hyposegmented Neuts Not Reportable Hypogranular Neuts Not Reportable Smudge Cells Not Reportable Toxic Granulation Not Reportable Toxic Vacuolation Not Reportable Dohle Bodies Not Reportable Pelger-[place]uet Anomaly Not Reportable Mode Rods Not Reportable Platelet Estimate Appe Clumped Platelets Not Reportable Plt Clumps, EDTA Not Reportable Large Platelets Not Reportable Giant Platelets Not Reportable Platelet Satelliting Not Reportable Plt Morphology Comment Not Reportable RBC Morphology Normal Dimorphic RBCs Not Reportable Polychromasia Not Reportable Hypochromasia Not Reportable Poikilocytosis Not Reportable Anisocytosis Not Reportable Microcytosis Not Reportable Macrocytosis Not Reportable Spherocytes Not Reportable Pappenheimer Bodies Not Reportable Sickle Cells Not Reportable Target Cells Not Reportable Tear Drop Cells Not Reportable Ovalocytes Not Reportable Helmet Cells Not Reportable [place] Bodies Not Reportable [place] Rings Not Reportable Sang Cells Not Reportable Bite Cells Not Reportable Crenated Cell Not Reportable Elliptocytes Not Reportable Acanthocytes (Spur) Not Reportable Rouleaux Not Reportable Hemoglobin C Crystals Not Reportable Schistocytes Not Reportable Malaria parasites Not Reportable Jaren Bodies Not Reportable Hem Pathologist Commnt No Sodium 140 Potassium 3.4 L Chloride 104.4 Carbon Dioxide 22 Anion Gap 17 BUN 7 Creatinine 0.5 L Estimated GFR > 60 BUN/Creatinine Ratio 14 Glucose 89 Hemoglobin A1c Calcium 8.0 L Total Bilirubin 0.20 AST 10 ALT 8 Alkaline Phosphatase 39 Total Creatine Kinase Total Protein 6.1 L Albumin 3.0 L Albumin/Globulin Ratio 1.0 TSH Assessment and Plan 1.abdomen pain 2.nausea -afebrile -WBC 12.5-trending down -LFTs WNL -abd CT unremarkable -patient reports continued intermittent upper abdominal pain (periumbilical/epigastric/RUQ) with associated nausea following 2 episodes of a stomach virus 1-2 months ago. Symptoms are worse with eating. 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 vs GB vs other -will schedule for EGD in am -HIDA scan -start on PPI -limit narcotics -continue antiemetics and supportive care -further recommendations to follow <BIRD CONNER - Last Filed: 08/03/18 17:00> Medications and Allergies Active Meds: Active Medications Acetaminophen (Tylenol) 650 mg PO Q4H PRN PRN Reason: Pain MILD(1-3)/Fever >100.5/TURNER Last Admin: 08/03/18 14:38 Dose: 650 mg Documented by: Hydromorphone HCl (Dilaudid) 0.5 mg IV Q3H PRN PRN Reason: Pain , Severe (7-10) Sodium Chloride (Nacl 0.9% 1000 Ml) 1,000 mls @ 100 mls/hr IV DIRECT [facility] Last Admin: 08/03/18 16:53 Dose: 100 mls/hr Documented by: Ondansetron HCl (Zofran) 4 mg IV Q8H PRN PRN Reason: Nausea And Vomiting Last Admin: 08/03/18 12:11 Dose: 4 mg Documented by: Oseltamivir Phosphate (Tamiflu) 75 mg PO BID [facility] Stop: 08/07/18 10:01 Last Admin: 08/03/18 09:42 Dose: 75 mg Documented by: Pantoprazole Sodium (Protonix) 40 mg IV QDAY [facility] Last Admin: 08/03/18 16:53 Dose: 40 mg Documented by: Sodium Chloride (Sodium Chloride Flush Syringe 10 Ml) 10 ml IV BID [facility] Last Admin: 08/03/18 09:43 Dose: 10 ml Documented by: Sodium Chloride (Sodium Chloride Flush Syringe 10 Ml) 10 ml IV PRN PRN PRN Reason: LINE FLUSH Exam - Constitutional Vital Signs: Temp Pulse Resp BP Pulse Ox 97.9 F 62 20 110/51 96 08/03/18 05:10 08/03/18 05:10 08/03/18 05:10 08/03/18 05:10 08/03/18 05:10 - Labs CBC & Chem 7: 08/03/18 04:24 08/03/18 04:24 Lab Results: Laboratory Results - last 24 hr 08/02/18 08/03/18 08/03/18 16:44 04:24 04:24 WBC 12.5 H RBC 4.12 Hgb 11.9 Hct 36.0 MCV 87 MCH 29 MCHC 33 RDW 14.0 Plt Count 260 Lymph # Back Tender [employer] Printing Add Manual Diff Complete Total Counted 100 Seg Neuts % (Manual) 63.0 Band Neutrophils % 0 Lymphocytes % (Manual) 29.0 Reactive Lymphs % (Man) 0 Monocytes % (Manual) 8.0 H Eosinophils % (Manual) 0 Basophils % (Manual) 0 Metamyelocytes % 0 Myelocytes % 0 Promyelocytes % 0 Blast Cells % 0 Nucleated RBC % Not Reportable Seg Neutrophils # Man 7.9 H Band Neutrophils # 0.0 Lymphocytes # (Manual) 3.6 Abs React Lymphs (Man) 0.0 Monocytes # (Manual) 1.0 H Eosinophils # (Manual) 0.0 Basophils # (Manual) 0.0 Metamyelocytes # 0.0 Myelocytes # 0.0 Promyelocytes # 0.0 Blast Cells # 0.0 WBC Morphology Not Reportable Hypersegmented Neuts Not Reportable Hyposegmented Neuts Not Reportable Hypogranular Neuts Not Reportable Smudge Cells Not Reportable Toxic Granulation Not Reportable Toxic Vacuolation Not Reportable Dohle Bodies Not Reportable Pelger-Huet Anomaly Not Reportable Mode Rods Not Reportable Platelet Estimate Appe Clumped Platelets Not Reportable Plt Clumps, EDTA Not Reportable Large Platelets Not Reportable Giant Platelets Not Reportable Platelet Satelliting Not Reportable Plt Morphology Comment Not Reportable RBC Morphology Normal Dimorphic RBCs Not Reportable Polychromasia Not Reportable Hypochromasia Not Reportable Poikilocytosis Not Reportable Anisocytosis Not Reportable Microcytosis Not Reportable Macrocytosis Not Reportable Spherocytes Not Reportable Pappenheimer Bodies Not Reportable Sickle Cells Not Reportable Target Cells Not Reportable Tear Drop Cells Not Reportable Ovalocytes Not Reportable Helmet Cells Not Reportable [place] Bodies Not Reportable [place] Rings Not Reportable Sang Cells Not Reportable Bite Cells Not Reportable Crenated Cell Not Reportable Elliptocytes Not Reportable Acanthocytes (Spur) Not Reportable Rouleaux Not Reportable Hemoglobin C Crystals Not Reportable Schistocytes Not Reportable Malaria parasites Not Reportable Jaren Bodies Not Reportable Hem Pathologist Commnt No Sodium 140 Potassium 3.4 L Chloride 104.4 Carbon Dioxide 22 Anion Gap 17 BUN 7 Creatinine 0.5 L Estimated GFR > 60 BUN/Creatinine Ratio 14 Glucose 89 Hemoglobin A1c 5.5 Calcium 8.0 L Total Bilirubin 0.20 AST 10 ALT 8 Alkaline Phosphatase 39 Total Protein 6.1 L Albumin 3.0 L Albumin/Globulin Ratio 1.0 Lipase 08/03/18 04:24 WBC RBC Hgb Hct MCV MCH MCHC RDW Plt Count Lymph # Add Manual Diff Total Counted Seg Neuts % (Manual) Band Neutrophils % Lymphocytes % (Manual) Reactive Lymphs % (Man) Monocytes % (Manual) Eosinophils % (Manual) Basophils % (Manual) Metamyelocytes % Myelocytes % Promyelocytes % Blast Cells % Nucleated RBC % Seg Neutrophils # Man Band Neutrophils # Lymphocytes # (Manual) Abs React Lymphs (Man) Monocytes # (Manual) Eosinophils # (Manual) Basophils # (Manual) Metamyelocytes # Myelocytes # Promyelocytes # Blast Cells # WBC Morphology Hypersegmented Neuts Hyposegmented Neuts Hypogranular Neuts Smudge Cells Toxic Granulation Toxic Vacuolation Dohle Bodies Pelger-Huet Anomaly Mode Rods Platelet Estimate Clumped Platelets Plt Clumps, EDTA Large Platelets Giant Platelets Platelet Satelliting Plt Morphology Comment RBC Morphology Dimorphic RBCs Polychromasia Hypochromasia Poikilocytosis Anisocytosis Microcytosis Macrocytosis Spherocytes Pappenheimer Bodies Sickle Cells Target Cells Tear Drop Cells Ovalocytes Helmet Cells [place] Bodies [place] Rings [place] Cells Bite Cells Crenated Cell Elliptocytes Acanthocytes (Spur) Rouleaux Hemoglobin C Crystals Schistocytes Malaria parasites Jaren Bodies Hem Pathologist Commnt Sodium Potassium Chloride Carbon Dioxide Anion Gap BUN Creatinine Estimated GFR BUN/Creatinine Ratio Glucose Hemoglobin A1c Calcium Total Bilirubin AST ALT Alkaline Phosphatase Total Protein Albumin Albumin/Globulin Ratio Lipase 15 Assessment and Plan pt seen and examined. agree with note above. broad ddx including PUD, GB source, functional abd pain, post-infectious ibs/gastroparesis etc. plan for egd tomorrow and GB work-up. further recommendations following above work-up
[2018-08-03] MEDS: TYLENOL PO PRN (14:38)
[2018-08-03] MEDS ORDERED: ATIVAN IV ONE ×2 (14:46→18:15)
[2018-08-03] MEDS: PROTONIX IV SCH (16:53)
--- NOTE | 2018-08-03 19:57 | Magnetic Resonance Report ---
FINAL REPORT EXAM: MR BRAIN WO CON HISTORY: vertigoinpatient TECHNIQUE: MRI brain without contrast PRIORS: None. FINDINGS: There is normal signal throughout the brain parenchyma. No evidence for brain edema pattern or mass e ffect. Ventricles and sulci are within normal limits. No evidence for acute intra-axial or extra-axia l hemorrhage. No evidence for acute restriction on diffusion-weighted study. Brainstem and posterior fossa structur es are unremarkable. IMPRESSION: Negative. No focal abnormality identified
[2018-08-04] MEDS: NACL 0.9% 1000 ML 1,000 ML IV SCH ×2 (03:24→12:32)
[2018-08-04] MEDS ORDERED: KINEVAC IV ONE ×2 (08:18→08:30)
--- NOTE | 2018-08-04 09:25 | Nuclear Medicine Report ---
HEPATOBILIARY SCAN: History: Abdominal pain. Following the injection of the radionuclide, serial scanning was obtained over the right upper quadrant. Initial imaging of the liver demonstrates a relatively normal activity pattern. Progressive concentration of the radionuclide in the bile ducts, with filling of both the gallbladder and small bowel, is identified within a normal time period. The gallbladder ejection fraction measures 81%. The patient reports right upper quadrant pain and mild nausea following the infusion of CCK. IMPRESSION: Normal biliary system. Symptomatology as described.
[2018-08-04] MEDS: PROTONIX IV SCH (09:51)
[2018-08-04] MEDS: SODIUM CHLORIDE FLUSH SYRINGE 10 ML IV SCH (09:52)
--- NOTE | 2018-08-04 12:58 | Anesthesia Consultation ---
Anesthesia Consult and Med Hx Date of service: 08/04/18 - Airway Anesthetic Teeth Evaluation: Good, Chipped ROM Head & Neck: Adequate Mental/Hyoid Distance: Adequate Mallampati Class: Class II Intubation Access Assessment: Probably Good - Pre-Operative Health Status ASA Pre-Surgery Classification: ASA2 Proposed Anesthetic Plan: MAC (Vertigo; Ataxia; Visual disturbances; Leukocytosis; Syncope)
--- NOTE | 2018-08-04 12:59 | Anesthesia Day of Surgery ---
Anesthesia Day of Surgery - Day of Surgery Patient Examined: Yes Patient H&P Reviewed: Yes Patient is NPO: Yes
[2018-08-04] MEDS ORDERED: NACL 0.9% 1000 ML 1,000 ML IV SCH (13:00)
[2018-08-04] MEDS ORDERED: DIPRIVAN 10 MG/ML IV ONE ×2 (13:02→13:03)
--- NOTE | 2018-08-04 13:10 | Operative Report ---
Operative Report Operative Report: Esophagogastroduodenoscopy Procedure Report Date of procedure: 08/04/2018 Endoscopist: Cristhian Mccormick Pre-op diagnosis/indication: Abdominal pain Post-op diagnosis: Normal upper endoscopy MEDICATIONS: MAC COMPLICATIONS: No immediate complications ESTIMATED BLOOD LOSS: none DESCRIPTION OF PROCEDURE: After consent was obtained, the patient was placed in the left lateral decubitis position. The upper fujinon endoscope was passed with direct vision through the mouth and advanced to the 2nd portion of the duodenum without difficulty. The mucosal views were good. The patient tolerated the procedure well. The patient's vital signs were monitored continuously throughout the procedure. FINDINGS: The esophagus appeared normal. The stomach appeared normal. The duodenum appeared normal. IMPRESSION: 1. Normal upper endoscopy RECOMMENDATIONS: -restart diet and advance as tolerated -HIDA scan showed normal EF but symptomatic during CCK injection phase. consider surgery consult to evaluate for CCY -follow-up in GI clinic in 3-4 weeks Will sign off, please call as needed or with questions
--- NOTE | 2018-08-04 14:09 | Discharge Summary ---
Providers - Providers Date of Admission: 08/02/18 15:54 Attending physician: SELINA WRAY MD 08/03/18 10:43 Consult to Physician [CONS] Routine Comment: Consulting Provider: BIRD CONNER Physician Instructions: Reason For Exam: interactable abdominal pain 08/03/18 10:47 Physical Therapy Evaluation and Treat [CONS] Routine Comment: Reason For Exam: ataxia. vestibular traning Primary care physician: BUSINESS RESILIENCY MANAGER Hospitalization Reason for admission: NEAR SYNCOPE Condition: Stable Hospital course: 43-year-old female with no significant past medical history comes in for nausea and dizziness and feeling weak for last 1 week. Feels unsteady while walking secondary to weakness. Patient was evaluated in [facility] and was told that she had a viral syndrome. Her blood pressure was apparently high but normally she runs a normal blood pressure on a regular basis. Low-grade fever present. Off and on. Did not vomit. No diarrhea. No shortness of breath. Feels weak and dizzy while standing and walking. Says she has some blurred vision intermittently. No dysarthria or dysphagia. No dysuria. No recent travel. Patient underwent HIDA which was read as normal but had some symptoms, outpatient surgical eval was recommended. I also recommended outpatient vestibular training. She will continue with Meclizine. Peritoneal irritation with intractable BPV Hypokalemia Nausea with no Vomiting SIRS with non infectious etiology Morbid obesity Disposition: DC-01 TO HOME OR SELFCARE Time spent for discharge: 35 MINS Core Measure Documentation - Palliative Care Palliative Care/ Comfort Measures: Not Applicable - Core Measures Any of the following diagnoses?: none - VTE Discharge Requirements Deep Vein Thrombosis/Pulmonary Embolism Present on Admission: No Exam - Physical Exam Narrative exam: VITAL SIGNS: Reviewed. GENERAL: The patient appeared well nourished and normally developed. Vital signs as documented. HEAD: No signs of head trauma. EYES: Pupils are equal. Extraocular motions intact. No nystagmus EARS: Hearing grossly intact. MOUTH: Oropharynx is normal. NECK: No adenopathy, no JVD. CHEST: Chest with clear breath sounds bilaterally. No wheezes, rales, or rhonchi. CARDIAC: Regular rate and rhythm. S1 and S2, without murmurs, gallops, or rubs. VASCULAR: No Edema. Peripheral pulses normal and equal in all extremities. ABDOMEN: Soft, . No sign of distention. No rebound or guarding, and no masses palpated. Bowel Sounds normal. MUSCULOSKELETAL: Good range of motion of all major joints. Extremities without clubbing, cyanosis or edema. NEUROLOGIC EXAM: Alert and oriented x 3. No focal sensory or strength deficits. Speech normal. Follows commands. PSYCHIATRIC: Mood normal. SKIN: No rash or lesions. - Constitutional Vitals: Temp Pulse Resp BP Pulse Ox 98.1 F 66 14 104/57 96 08/04/18 13:18 08/04/18 13:33 08/04/18 13:33 08/04/18 13:33 08/04/18 13:33 Plan Activity: advance as tolerated, fall precautions Diet: low fat Special Instructions: record daily weights, record daily BP diary Follow up with: BIRD CONNER MD [Staff Physician] - 7 Days PRIMARY CAREMD [Primary Care Provider] - 3-5 Days JODI SUMMERS MD [Staff Physician] - 7 Days Prescriptions: Ondansetron [Zofran Odt] 4 mg PO Q8HR #30 tab.rapdis Other Discharge Orders: Physicial Therapy (Amb) Location: None Selected
[2018-08-04 17:49] VITALS: BP 123/64
== END 2018-08-04 18:06 | disposition home or self-care (01) ==
LOC: ED 12:05 → 3A 15:54
PROVIDERS: ADMIT Internal Medicine; ATTEND Internal Medicine
DX: R10.9 Unspecified abdominal pain (principal); R55 Syncope and collapse; R27.0 Ataxia, unspecified; D72.829 Elevated white blood cell count, unspecified; E86.0 Dehydration; H53.9 Unspecified visual disturbance; Z86.718 Personal history of other venous thrombosis and embolism; Z87.898 Personal history of other specified conditions; Z23 Encounter for immunization; Z09 Encounter for follow-up examination after completed treatment for conditions other than malignant neoplasm
CPT/HCPCS: 36415; 43235; 70450; 70551; 71046; 74176; 78227; 80048; 80053; 81001; 81025; 82550; 83036; 83690; 83735; 84443; 84484; 85007; 85025; 85027; 85610; 85730; 90686; 93005; 93010; 96361; 96374; 96375; 96376; 97161; 99284; A9537; C9113; G0378; J2405; J2704; J2805; J7030; J7040; J1170; J2060